=== PATIENT | female | born 1945 | race Two or more races ===

== ENCOUNTER 2024-03-29 16:47 | Emergency (ER) | payer MEDICARE, MEDICAID ==
[~2024-03-29] VITALS: Ht 162.6 cm; Wt 74.0 kg
[2024-03-29 16:53] VITALS: TEMP 98.7; O2SAT 100
[2024-03-29] MEDS: LIDOCAINE 5% PATCH TOP SCH (21:25)
[2024-03-29] MEDS: ACETAMINOPHEN 500MG TABLET PO ONE (21:25)
[2024-03-29] MEDS ORDERED: LIDO700A15 TP (21:39)
[2024-03-29] MEDS ORDERED: NAPR-1176 MT (21:39)
[2024-03-29 21:52] VITALS: BP 128/82; PULSE 72; RESP 18; O2SAT 99
== END 2024-03-29 21:53 | disposition home or self-care (01) ==
LOC: ER 16:47
DX: M54.50 Low back pain, unspecified (principal); R51.9 Headache, unspecified; V49.9XXA Car occupant (driver) (passenger) injured in unspecified traffic accident, initial encounter; Y93.89 Activity, other specified; Y92.89 Other specified places as the place of occurrence of the external cause; Y99.9 Unspecified external cause status
CPT/HCPCS: 72131; 99284